=== PATIENT | male | born 2000 | race Caucasian/White ===

== ENCOUNTER 2022-07-23 18:56 | Emergency (ER) | payer SELFPAY ==
[~2022-07-23] VITALS: Ht 172.7 cm; Wt 84.4 kg
[2022-07-23 19:52] VITALS: BP 115/67
--- NOTE | 2022-07-23 19:55 | NUR ---
TO LOBBY A/W BED AMBULATORY
[2022-07-23] MEDS ORDERED: LIDOCAINE 1% 500 MG/ 50 ML VIAL IM ONE (20:25)
[2022-07-23] MEDS ORDERED: AMPICILLIN/SULBACTAM 3 GM in NACL 0.9% 100 ML IV ONE (20:25)
[2022-07-23] MEDS ORDERED: LIDOCAINE 2% 1000 MG/50 ML VIAL INJ ONE (20:31)
--- NOTE | 2022-07-23 20:41 | NUR ---
Dr. Quijano examining patient.
[2022-07-23] MEDS ORDERED: AMPICILLIN/SULBACTAM 3 GM VIAL ONE (20:52)
--- NOTE | 2022-07-23 21:07 | NUR ---
RAD AT BEDSIDE
--- NOTE | 2022-07-23 21:20 | NUR ---
ESTEE YOUNG AT BEDSIDE
--- NOTE | 2022-07-23 21:27 | NUR ---
VERBAL ORDER FROM ESTEE YOUNG FOR LIDOCAINE 1000MG/50ML.
[2022-07-23] MEDS ORDERED: CEPH500C16 PO (22:01)
--- NOTE | 2022-07-23 22:40 | NUR ---
Tdap vaccine given on left deltoid as ordered. consent given. tolerated well.
--- NOTE | 2022-07-23 23:00 | NUR ---
Patient discharged with v/s stable. Written and verbal after care instructions given and explained. Patient verbalized understanding. Ambulatory with steady gait. All questions addressed prior to discharge. Advised to follow up with PMD.
== END 2022-07-23 23:00 | disposition home or self-care (01) ==
LOC: MED 18:56
DX: S81.811A Laceration without foreign body, right lower leg, initial encounter (principal); W26.8XXA Contact with other sharp object(s), not elsewhere classified, initial encounter; Y93.89 Activity, other specified; Y92.89 Other specified places as the place of occurrence of the external cause; Y99.8 Other external cause status
CPT/HCPCS: 12002; 73590; 90471; 90715; 96365; 99284; J0295; J2001